=== PATIENT | male | born 1950 | race Caucasian/White ===

== ENCOUNTER 2019-05-14 00:36 | Outpatient (CLI) | payer MEDICARE, OTHER, SELFPAY ==
--- NOTE | 2019-05-14 10:56 | DI.NM_ITS ---
APPROVED REPORT Exam: Pharmacologic Patient Location: Out-Patient Room/Bed: Stress Nurse: Kailey Mcintosh RN BMI: 31.19 Baseline Rhythm: Atrial Fibrillation Medical History Medical History: CAD s/p CABG, CAD s/p ME, CAD s/p stent Cardiac Medications: Eliquis, Co Q-10, , Amlodipine, Clopidogrel/ Plavix, Nitroglycerin, Rosuvastati n/ Crestor, Diltiazem/ Cardizem, Furosemide/ Lasix Allergies: No known drug allergies Cardiac Risk Factors: HTN, Hyperlipidemia, DM, FHX of CAD, Smoking (former),, SOB, Asthma Previous Cardiac Procedures: CABG, PCI, Myocardial infarction Pretest Chest Pain Characteristics: Non-exertional Chest pain Exercise History: Indeterminate Physical Disabilities: Legs, Back, Hips Lung Sounds: Clear to auscultation Heart Sounds: Irregular Stress Test Details Test: Pharmacologic stress testing performed using 0.4 mg of regadenoson per 5 mL given IV over 10 s econds. Nuclear Acquisition: Rest Tc-99m/Stress Tc-99m 1 day Rest Isotope: Tc-99m Sestamibi. Dose: 12.1 Date: 05/14/2019 Injection Time: 0930 Stress Isotope: Tc-99m Sestamibi. Dose: 37.1 Date: 05/14/2019 Injection Time: 1115 HR Max Heart Rate (APMHR): 152 bpm Resting HR Supine: 89 bpm Target HR (85% APMHR): 129 bpm Max HR Achieved: 94 bpm % of APMHR: 61 Recovery HR: 92 bpm HR response to stress: Normal HR response to stress BP Resting BP Supine: 110/64 mmHg Max BP: 112/60 mmHg Recovery BP: 110/60 mmHg BP response to stress: Normal blood pressure response to stress. ECG Resting ECG: Atrial Fibrillation, RBBB ST Change: none Ectopy: PVCs Stress ECG: Atrial Fibrillation, RBBB ST Change: No significant ST segment changes seen Arrhythmia: PVCs. Ventricular couplets. Recovery ECG: Atrial Fibrillation Recovery ST Change: No significant ST segment changes seen Recovery Arrhythmia: PVCs. Clinical Start time of Regadenoson test (time of injection): 1100 Stress ECG Conclusion 1. There is no evidence of ischemia on the ECG portion of this exam. Protocol Used: Regadenoson Stress Test Summary STAGE HR BP Symptoms NOTES Supine 89 110/64 1 min post lexiscan injection 89 112/60 3 min post lexiscan injection 94 110/60 6 min post lexiscan injection 92 110/60 MPI Conclusion There is a small nonreversible perfusion defect the anterior wall and apex. There is no significant reversibility and is this is consistent with scarring. Global hypokinesis with an ejection fraction of 26% Radiologist Interpretation Radiologist agrees with [employer]'s Interpretation. Radiologist Interpretation by: Leandro Pagan MD Interpretation Date/Time: 05/16/2019 09:30:48
[2019-05-14] MEDS: Regadenoson 0.4 MG/5 ML SYR IVP (11:01)
== END 2019-05-14 00:56 ==
PROVIDERS: PCP Family Medicine; Visit Provider Internal Medicine Interventional Cardiology
DX: I25.10 Atherosclerotic heart disease of native coronary artery without angina pectoris (principal); I25.2 Old myocardial infarction; R07.9 Chest pain, unspecified; I48.91 Unspecified atrial fibrillation; I10 Essential (primary) hypertension; E78.5 Hyperlipidemia, unspecified; E11.9 Type 2 diabetes mellitus without complications; Z95.1 Presence of aortocoronary bypass graft; Z95.5 Presence of coronary angioplasty implant and graft; Z82.49 Family history of ischemic heart disease and other diseases of the circulatory system; Z87.891 Personal history of nicotine dependence
CPT/HCPCS: 78452; 93016; 93018; 93017; J2785

== ENCOUNTER 2020-09-15 00:57 | Outpatient (CLI) | payer MEDICARE, OTHER, SELFPAY ==
--- NOTE | 2020-09-15 | DI.CT_ITS ---
Exam(s) CT UPPER EXTREMITY RT WO EXAM: CT UPPER EXTREMITY RT WO CLINICAL HISTORY: INSTABILITY RT SHOULDER JOINT,M25.311,S/P RT TSA,GLENOID DEFICIENCY. TECHNIQUE: Imaging Protocol: Axial computed tomography images with coronal and sagittal reformatted images were created and reviewed. COMPARISON: No previous for comparison. FINDINGS: There is artifact from the patient's right shoulder replacement. There are no lucency seen about the orthopedic hardware to suggest loosening or infection. Bones: No acute fracture or dislocation. No suspicious lytic or sclerotic lesions are seen in the b ones. No CT findings to suggest osteomyelitis. There are degenerative changes seen at the acromiocl avicular joint. Dystrophic calcifications are seen in the soft tissues. Sternal wires are in place. Soft Tissues: Visualized lung ann are clear. Atherosclerosis is present. No focal fluid collect ions are seen to suggest an abscess. No soft tissue mass is appreciated. IMPRESSION: 1. Right shoulder replacement. No lucency seen in or about the orthopedic hardware to suggest loosen ing or infection. 2. Degenerative changes of the AC joint. 3. Atherosclerosis. RADIATION DOSE DELIVERED: 190.97mGy.cm Total DLP 190.97mGy.cm Total DLP DATA REPOSITORY: All CT scans at this facility are submitted to the National Radiology Data Registry (NRDR) Dose Index Registry (DIR) with the [employer] ([employer]). RADIATION OPTIMIZATION: All CT scans at this facility use at least one of these dose optimization te chniques: automated exposure control; mA and/or kV adjustment per patient size (includes targeted exa ms where dose is matched to clinical indication); or iterative reconstruction.
== END 2020-09-15 01:17 ==
PROVIDERS: PCP Family Medicine; Visit Provider Orthopaedic Surgery
DX: M25.511 Pain in right shoulder (principal); M25.311 Other instability, right shoulder; Z96.611 Presence of right artificial shoulder joint; M19.011 Primary osteoarthritis, right shoulder
CPT/HCPCS: 73200